=== PATIENT | male | born 1965 | race Caucasian/White ===

== ENCOUNTER 2019-01-30 10:17 | Emergency (ER) | payer OTHER ==
[2019-01-30] MEDS: LIDOCAINE 2% (MDV) 20 ML INJ INJ (11:11)
[2019-01-30] MEDS: KETOROLAC 30 MG INJ IM (11:11)
== END 2019-01-30 13:01 | disposition home or self-care (01) ==
LOC: FTE 13:01
DX: L02.211 Cutaneous abscess of abdominal wall (principal)
CPT/HCPCS: 10060; 96372; 99284-25

== ENCOUNTER 2019-02-01 10:25 | Inpatient (IN) | payer OTHER ==
[2019-02-01 12:26] LABS: ADD MAN DIFF? NO
[2019-02-01 12:27] LABS: BASOPHIL # 0.1 10^3/ul (0.0-0.1); BASOPHILS % 0.9 % (0.0-2.0); EOSINOPHILS # 0.4 10^3/ul (0.0-0.5); EOSINOPHILS % 3.8 % (0.0-7.0); HEMATOCRIT 45.6 % (42.0-52.0); HEMOGLOBIN 15.7 g/dl (14.0-18.0); LYMPHOCYTES # 2.3 10^3/ul (0.8-2.9); LYMPHOCYTES % 21.7 % (15.0-51.0); MEAN CORPUSCULAR HEMOGLOBIN 29.1 pg (29.0-33.0); MEAN CORPUSCULAR HGB CONC 34.4 g/dl (32.0-37.0); MEAN CORPUSCULAR VOLUME 84.4 fl (82.0-101.0); MEAN PLATELET VOLUME 9.5 fl (7.4-10.4); MONOCYTE # 0.6 10^3/ul (0.3-0.9); MONOCYTES % 5.7 % (0.0-11.0); NEUTROPHILS % 66.7 % (39.0-77.0); PLATELET COUNT 301 10^3/UL (140-415); RED CELL DISTRIBUTION WIDTH 12.8 % (11.5-14.5)
[2019-02-01 12:27] LABS: WHITE BLOOD COUNT 10.5 10^3/ul (4.8-10.8)
[2019-02-01] MEDS: SOD CHLORIDE 0.9% 1,000 ML IV (12:29)
[2019-02-01] MEDS: KETOROLAC 15 MG INJ IV (12:30)
[2019-02-01 12:56] LABS: ALANINE AMINOTRANSFERASE 45 IU/L (13-69); ALBUMIN 4.5 g/dl (3.3-4.9); ALBUMIN/GLOBULIN RATIO 1.25; ALKALINE PHOSPHATASE 77 IU/L (42-121); ANION GAP 9 (5-13); ASPARTATE AMINO TRANSFERASE 27 IU/L (15-46); BILIRUBIN,INDIRECT 0.4 mg/dl (0-1.1); BILIRUBIN,TOTAL 0.4 mg/dl (0.2-1.3); BLOOD UREA NITROGEN 8 mg/dl (7-20); CALCIUM 9.5 mg/dl (8.4-10.2); CARBON DIOXIDE 27 mmol/L (21-31); CHLORIDE 101 mmol/L (97-110); CREATININE 0.92 mg/dl (0.61-1.24); Estimated GFR > 60 mL/min (>60); GLUCOSE 112 mg/dl (70-220); POTASSIUM 4.1 mmol/L (3.5-5.1); SODIUM 137 mmol/L (135-144); TOTAL PROTEIN 8.1 g/dl (6.1-8.1)
[2019-02-01] MEDS: VANCOMYCIN 1 GM (PMX) 250 ML IVPB (14:20)
[2019-02-01 14:47] LABS: PROTIME 13.3 Sec (11.9-14.9)
[2019-02-01 14:48] LABS: PARTIAL THROMBOPLASTIN TIME 28.8 Sec (23.0-35.0)
[2019-02-01] MEDS ORDERED: HYDROCODONE/APAP (5/325) TAB PO (15:00)
[2019-02-01] MEDS ORDERED: MAGNESIUM HYDROXIDE 30ML CUP PO (15:00)
[2019-02-01] MEDS ORDERED: ONDANSETRON 4 MG INJ IV ×2 (15:00)
[2019-02-01] MEDS ORDERED: VANCOMYCIN IV PER PHARMACY XX (15:00)
[2019-02-01] MEDS ORDERED: hydrALAzine 20 MG INJ IV (15:00)
[2019-02-01] MEDS ORDERED: NACL 0.9% 3 ML SYG IV (15:00)
[2019-02-01] MEDS ORDERED: morphine 2 MG INJ IV (15:00)
[2019-02-01] MEDS ORDERED: NITROGLYCERIN (SL) 0.4 MG TAB SL (15:00)
[2019-02-01] MEDS ORDERED: LORAZEPAM 2 MG INJ IV (15:00)
[2019-02-01] MEDS ORDERED: DOCUSATE SODIUM 100 MG CAP PO (15:00)
[2019-02-01] MEDS ORDERED: ACETAMINOPHEN 325 MG TAB PO ×2 (15:00)
[2019-02-01] MEDS ORDERED: ALBUTEROL/IPRATROPIUM (NEB) 3 ML AMP HHN (15:00)
[2019-02-01 15:06] LABS: FREE T4 (FREE THYROXINE) 1.31 ng/dl (0.64-1.79)
[2019-02-01] MEDS: PIPER-TAZO 3.375 GM IV (PMX) 100 ML IVPB (17:48)
[2019-02-01] MEDS: SOD CHLORIDE 0.45% 1,000 ML IV (17:52)
[2019-02-01] MEDS: traMADol 50 MG TAB GTB (18:39)
[2019-02-01] MEDS: VANCOMYCIN 1.5 GM/NS 250 ML 250 ML IVPB (21:44)
[2019-02-01] MEDS: QUETIAPINE 25 MG TAB PO (21:44)
[2019-02-01] MEDS: DULOXETINE 30 MG CAP DR PO (21:44)
[2019-02-01] MEDS: LAMOTRIGINE 100 MG TAB PO (21:52)
[2019-02-01] MEDS: HEPARIN 5,000 UNIT/1 ML VIAL SC (21:55)
[2019-02-02] MEDS: PIPER-TAZO 3.375 GM IV (PMX) 100 ML IVPB ×3 (00:28→11:23)
[2019-02-02] MEDS: SOD CHLORIDE 0.45% 1,000 ML IV (03:51)
[2019-02-02 05:47] LABS: ADD MAN DIFF? NO
[2019-02-02 05:54] LABS: WHITE BLOOD COUNT 9.5 10^3/ul (4.8-10.8)
[2019-02-02 05:54] LABS: BASOPHIL # 0.1 10^3/ul (0.0-0.1); BASOPHILS % 0.8 % (0.0-2.0); EOSINOPHILS # 0.4 10^3/ul (0.0-0.5); EOSINOPHILS % 4.3 % (0.0-7.0); HEMATOCRIT 41.5 % (42.0-52.0); HEMOGLOBIN 14.2 g/dl (14.0-18.0); LYMPHOCYTES # 2.8 10^3/ul (0.8-2.9); LYMPHOCYTES % 29.5 % (15.0-51.0); MEAN CORPUSCULAR HEMOGLOBIN 28.8 pg (29.0-33.0); MEAN CORPUSCULAR HGB CONC 34.2 g/dl (32.0-37.0); MEAN CORPUSCULAR VOLUME 84.2 fl (82.0-101.0); MEAN PLATELET VOLUME 9.6 fl (7.4-10.4); MONOCYTE # 0.5 10^3/ul (0.3-0.9); MONOCYTES % 5.3 % (0.0-11.0); NEUTROPHIL # 5.6 10^3/ul (1.6-7.5); NEUTROPHILS % 58.8 % (39.0-77.0); PLATELET COUNT 280 10^3/UL (140-415); RED BLOOD COUNT 4.93 10^6/ul (4.70-6.10); RED CELL DISTRIBUTION WIDTH 12.9 % (11.5-14.5)
[2019-02-02 06:32] LABS: ANION GAP 6 (5-13); BLOOD UREA NITROGEN 10 mg/dl (7-20); CARBON DIOXIDE 26 mmol/L (21-31); CHLORIDE 105 mmol/L (97-110); CREATININE 1.01 mg/dl (0.61-1.24); Estimated GFR > 60 mL/min (>60); GLUCOSE 88 mg/dl (70-220); MAGNESIUM 2.2 mg/dl (1.7-2.5); PHOSPHORUS 3.8 mg/dl (2.5-4.9); POTASSIUM 4.8 mmol/L (3.5-5.1); SODIUM 137 mmol/L (135-144)
[2019-02-02 06:46] LABS: CHOL/HDL RATIO 4.4 RATIO; HDL CHOLESTEROL 28 mg/dl (28-71); LDL CHOLESTEROL,CALCULATED 75 mg/dl; TRIGLYCERIDES 103 mg/dl (0-149)
[2019-02-02 06:46] LABS: CHOLESTEROL 124 mg/dl (100-200)
[2019-02-02 08:08] LABS: HEMOGLOBIN A1C 5.4 % (0-5.9)
[2019-02-02] MEDS: ARIPIPRAZOLE 10 MG TAB PO (08:32)
[2019-02-02] MEDS: HEPARIN 5,000 UNIT/1 ML VIAL SC (08:34)
[2019-02-02] MEDS: VANCOMYCIN 1.5 GM/NS 250 ML 250 ML IVPB (13:23)
== END 2019-02-02 17:00 | disposition home or self-care (01) | DRG 603 ==
LOC: E/R 10:25 → 2NE 14:34
PROVIDERS: Hospitalist
DX: L03.314 Cellulitis of groin (principal); F33.9 Major depressive disorder, recurrent, unspecified; L02.214 Cutaneous abscess of groin; R73.03 Prediabetes
CPT/HCPCS: 36415; 76536; 80048; 80053; 80061; 83036; 83605; 83735; 84100; 84439; 84443; 85025; 85610; 85730; 87040-91; 96374; 99285-25